=== PATIENT | female | born 2000 | race Caucasian/White ===

== ENCOUNTER 2022-06-21 20:17 | Emergency (ER) | payer OTHER ==
[~2022-06-21] VITALS: Ht 162.6 cm; Wt 72.6 kg
[2022-06-21 23:03] VITALS: BP 112/51
--- NOTE | 2022-06-21 23:05 | NUR ---
pT. DEPARTED ED WITH MOTHER. pT. INSTRUCTED ON HOW TO USE CRUTCHES AND APPLYING INTERMITTENT ICE AND WARM COMPRESSES TO KNEE FOR COMFORT. PT. TO F/U FRIDAY DIRECTED BY ER TO ORTHOPEDIC MD.
== END 2022-06-21 22:50 | disposition home or self-care (01) ==
LOC: ER 20:48
DX: S83.005A Unspecified dislocation of left patella, initial encounter (principal); X58.XXXA Exposure to other specified factors, initial encounter; Y93.41 Activity, dancing; Y92.89 Other specified places as the place of occurrence of the external cause; S83.92XA Sprain of unspecified site of left knee, initial encounter
CPT/HCPCS: A4663